=== PATIENT | male | born 1975 | race Caucasian/White ===

== ENCOUNTER 2021-07-24 16:21 | Outpatient (REF) | payer BC, SELFPAY | END 2021-07-24 16:22 | disposition home or self-care (01) | LOC: HO.LNP 16:21 | PROVIDERS: Visit Provider Physician Assistant Medical | DX: R35.0 Frequency of micturition (principal) | CPT/HCPCS: 87086 ==

== ENCOUNTER 2024-06-29 14:43 | Outpatient (AMB) | payer SELFPAY ==
--- NOTE | 2024-06-29 15:28 | MHC.OFFWIV ---
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 Intake Note: Patient here for lower abdominal pain, frequent urination and feels like he has to put more effort into emptying his bladder which has been going on for about 2 weeks. 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 HPI Details This note is constructed using voice recognition software. 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 The patient is a 48 year old male who presents to the clinic today with urinary frequency, burning, and lower abdomen pressure. He feels that at times it makes it hard for him to void. He had similar symptoms in the past and had an extensive workup including prostate exam, all of which were negative. He denies any blood, or discharge from his penis. He is sexually active with his only, no new partners. He denies back pain, fever, chills. He does report that he drinks a lot of coffee and not a lot of water. He recently increase his hydration efforts with water after the symptoms started approximately 2 weeks ago. [facility] Social History Patient Tobacco Use Status: Never used Tobacco Review of Systems Const All systems reviewed & are unremarkable except as noted in HPI and below Physical Exam Vital Signs: Last Vital Signs Pulse 65 06/29/24 15:30 BP 130/90 H 06/29/24 15:30 Pulse Ox 98 06/29/24 15:30 Oxygen Delivery Method Room Air 06/29/24 15:30 BMI result Body Mass Index 28.6 Const General: cooperative, healthy appearing, comfortable, no acute distress and alert Orientation/consciousness: patient oriented x3 Limitations: no limitations Resp Effort & Inspection: normal respiratory effort and able to speak in complete sentences Other: Deferred General: Yes no CVA tenderness Back/Spine/Pelvis Back: no CVA tenderness Skin General skin exam: no rashes or lesions noted, elasticity normal and turgor normal Neuro General: patient oriented x3 Psych Appearance: grossly normal Mental Status: mental status grossly normal Speech and movement: Normal speech and movement present Affect: normal affect Results AMB Urinalysis, Automated UA Leukoctes 0 Ashley/uL Last Edit by Renate Dowd CCM on 06/29/24 15:49 UA Nitrite Negative Last Edit by Renate Dowd [facility] on 06/29/24 15:49 UA Urobilinogen 0.2 mg/dL Last Edit by Renate Dowd [facility] on 06/29/24 15:49 UA Protein 0 mg/dL Last Edit by Renate Dowd [facility] on 06/29/24 15:49 UA pH 5.5 Last Edit by Renate Dowd [facility] on 06/29/24 15:49 UA Blood 0 Corwin/uL Last Edit by Renate Dowd [facility] on 06/29/24 15:49 UA Specific [place] 1.030 Last Edit by Renate Dowd [facility] on 06/29/24 15:49 UA Ketone Negative Last Edit by Renate Dowd [facility] on 06/29/24 15:49 UA Bilirubin 0 mg/dL Last Edit by Renate Dowd [facility] on 06/29/24 15:49 UA Glucose 0 mg/dL Last Edit by Renate Dowd [facility] on 06/29/24 15:49 Results Reviewed Results Reviewed: Laboratory Last Values Urine pH (Auto) 5.5 06/29/24 15:45 Specific [place] (Auto) 1.030 06/29/24 15:45 Urine Protein (Auto) 0 mg/dL 06/29/24 15:45 Glucose (UA)(Auto) 0 mg/dL 06/29/24 15:45 Urine Ketones (Auto) Negative 06/29/24 15:45 Urine Blood (Auto) 0 Corwin/uL 06/29/24 15:45 Urine Nitrite (Auto) Negative 06/29/24 15:45 Urine Bilirubin (Auto) 0 mg/dL 06/29/24 15:45 Urine Urobilinogen (Auto) 0.2 mg/dL 06/29/24 15:45 Leukocyte Esterase (Auto) 0 Ashley/uL 06/29/24 15:45 Assessment & Plan Assessment & Plan (1) Dysuria: Code(s): R30.0 - Dysuria Plan: In office urine inconsistent with urinary tract infection, however we discussed treatment based on symptoms, which he would like to proceed with. Advised patient to follow up with ongoing or worsening symptoms, or failure to resolve. Plan See above for full details and plan. Orders: Orders AMB Urinalysis Automated Today Z13.9 - Encounter for screening, unspecified Medications: New nitrofurantoin monohyd/m-cryst 100 mg must administer with a meal/food 100 mg PO Q12H 10 caps 0RF 5 days Coding Level of Care Code New Pt Level 3 (50241) Diagnoses Dysuria R30.0
[2024-06-29 15:30] VITALS: BP 130/90; PULSE 65; O2SAT 98; BMI 28.6
== END 2024-06-29 16:17 | disposition home or self-care (01) ==
PROVIDERS: Visit Provider Registered Nurse
DX: Z13.9 Encounter for screening, unspecified (principal); R30.0 Dysuria

== ENCOUNTER → 2024-06-29 14:43 | Outpatient (BNVA) | payer SELFPAY | DX: R30.0 Dysuria (principal) | CPT/HCPCS: 81003 ==

== ENCOUNTER 2025-07-14 12:30 | Outpatient (AMB) | payer BC, SELFPAY ==
--- NOTE | 2025-07-14 12:34 | AM.OFFWIN_ITS ---
Intake Vital Signs 07/14/25 12:41 Height 6 ft Weight 213 lb BMI 28.9 BP 112/70 Blood Pressure Location Rt brachial Position Sitting Respiration 15 Pulse 74 Pulse Source Pulse Oximeter Temp 97.8 F Temp Source Oral Pulse Oximetry (%) 98 Oxygen Delivery Method Room Air Intake Visit Reasons: EP Trouble Urinating Intake Note: Pt is here today c/o trouble urinating 1mo. Patient Tobacco Use Status: Never used Tobacco Allergies No Known Allergies Allergy (Verified 07/14/25 12:35) HPI HPI Comments History of Present Illness Details This is a 49-year-old male with no stated past medical history presenting for evaluation of urinary urgency and a feeling that he is unable to fully empty his bladder that has been ongoing for the past 1 month. Patient denies having any fevers, chills, abdominal pain, flank pain, dysuria, hematuria or penile discharge. Patient states he is able to maintain erections as before. Patient does not currently have a primary care provider of record. PFS Social History Patient Tobacco Use Status: Never used Tobacco Review of Systems Const All systems reviewed & are unremarkable except as noted in HPI and below Reports no additional complaints, Denies body aches, Denies chills and Denies fever(s) GI Denies fecal incontinence, Denies diarrhea, Denies nausea and Denies vomiting Denies difficulty with ejaculations, Denies erectile dysfunction, Denies dysuria, Denies flank pain, Denies painful ejaculations, Denies penile discharge, Reports urinary frequency, Denies urinary hesitancy and Denies urinary incontinence Musc Reports no additional complaints Skin/Breast Reports system reviewed and no additional complaints, except as documented Physical Exam Vital Signs: Last Vital Signs Temp 97.8 F 07/14/25 12:41 Pulse 74 07/14/25 12:41 Resp 15 07/14/25 12:41 BP 112/70 07/14/25 12:41 Pulse Ox 98 07/14/25 12:41 Oxygen Delivery Method Room Air 07/14/25 12:41 BMI result Body Mass Index 28.9 Const General: cooperative, healthy appearing, comfortable, no acute distress, well developed, alert, awake and Physically active; No ill appearing Nutritional Appearance: average body habitus Orientation/consciousness: patient oriented x3 Limitations: no limitations GI Inspection: Yes normal to inspection and No distended Palpation (GI): Soft to palpation, nontender and no guarding Rectal Exam - Male: Yes deferred General: Yes bladder normal to palpation Neuro General: patient oriented x3 Psych Appearance: grossly normal Mental Status: mental status grossly normal Insight: Good insight present (Psych) Judgement: Good judgement present (Psych) Results AMB Urinalysis, Automated UA Leukoctes 0 Ashley/uL Last Edit by Renetta Hall CMA on 07/14/25 12:46 UA Nitrite Negative Last Edit by Renetta Hall CMA on 07/14/25 12:46 UA Urobilinogen 0.2 mg/dL Last Edit by Renetta Hall CMA on 07/14/25 12:46 UA Protein 0 mg/dL Last Edit by Renetta Hall CMA on 07/14/25 12:46 UA pH 6.0 Last Edit by Renetta Hall CMA on 07/14/25 12:46 UA Blood 0 Corwin/uL Last Edit by Renetta Hall CMA on 07/14/25 12:46 UA Specific [place] 1.030 Last Edit by Renetta Hall CMA on 07/14/25 12:46 UA Ketone Negative Last Edit by Renetta Hall CMA on 07/14/25 12:46 UA Bilirubin 0 mg/dL Last Edit by Renetta Hall CMA on 07/14/25 12:46 UA Glucose 0 mg/dL Last Edit by Renetta Hall CMA on 07/14/25 12:46 Results Reviewed Results Reviewed: Laboratory Last Values Urine pH (Auto) 6.0 07/14/25 12:39 Specific [place] (Auto) 1.030 07/14/25 12:39 Urine Protein (Auto) 0 mg/dL 07/14/25 12:39 Glucose (UA)(Auto) 0 mg/dL 07/14/25 12:39 Urine Ketones (Auto) Negative 07/14/25 12:39 Urine Blood (Auto) 0 [place]/uL 07/14/25 12:39 Urine Nitrite (Auto) Negative 07/14/25 12:39 Urine Bilirubin (Auto) 0 mg/dL 07/14/25 12:39 Urine Urobilinogen (Auto) 0.2 mg/dL 07/14/25 12:39 Leukocyte Esterase (Auto) 0 Ashley/uL 07/14/25 12:39 Assessment & Plan Assessment & Plan (1) Urinary urgency: Comment: Patient's urinalysis is reviewed and there is no evidence of an acute urinary tract infection. Urine culture will be obtained. Prostate examination is d eferred at this time and patient will be referred to Urology. Code(s): R39.15 - Urgency of urination Plan: Flomax 1 tab daily times 2 weeks. The importance of obtaining a primary care physician is discussed with the patient so that he may access Urology as an outpatient. Orders: Orders Urine Culture Today R30.0 - Dysuria AMB Urinalysis Automated Today Z13.9 - Encounter for screening, unspecified Medications: New tamsulosin (Flomax) 0.4 mg PO BEDTIME 14 caps 0RF Coding Level of Care Code Est Pt Level 3 (31846) Diagnoses Urinary urgency R39.15 Time Spent (min) 20
[2025-07-14 12:41] VITALS: BP 112/70; PULSE 74; RESP 15; TEMP 36.6; O2SAT 98; BMI 28.9
== END 2025-07-14 14:01 | disposition home or self-care (01) ==
PROVIDERS: Visit Provider Physician Assistant
DX: R39.15 Urgency of urination (principal); Z13.9 Encounter for screening, unspecified

== ENCOUNTER 2025-07-14 12:30 | Outpatient (REF) | payer BC, SELFPAY | END 2025-07-14 12:31 | disposition home or self-care (01) | LOC: HO.LNP 12:30 | PROVIDERS: Visit Provider Physician Assistant | DX: R39.15 Urgency of urination (principal); R30.0 Dysuria | CPT/HCPCS: 81003; 87086 ==